=== PATIENT | female | born 1985 | race Caucasian/White ===

== ENCOUNTER → 2017-02-18 | Day surgery (SDC) | payer BC ==
[~2017-02-18] VITALS: Ht 160 cm; Wt 47.3 kg
[~2017-02-18] MED LIST: ACETAMINOPHEN 1000 MG/100 ML VIAL IV ONE; BETH25TA2 PO; DO NOT ADM ANY ANTICOAGULANT DRUGS XX PRN; FAMOTIDINE 20 MG/2 ML VIAL ONE; INSULIN HUMAN REGULAR 1,000 UNITS/10 ML VIAL SQ PRN; LACTATED RINGER'S 1000 ML IV SCH; METOPROLOL TARTRATE 25 MG TAB PO PRN; MIDAZOLAM HCL 2 MG/2 ML VIAL ONE; OB CCAP2 PO; ONDANSETRON HCL 4 MG/2 ML VIAL ONE; OXYTOCIN 10 UNIT/ML AMP ONE; PROPOFOL 200 MG/20 ML AMP IV ONE; PROT40TA PO; SODIUM CHLORID 0.9% 500 ML IV SCH; ceFAZolin 1,000 MG/NS 100 ML IV SCH; fentaNYL CITRATE 250 MCG/5 ML AMP ONE
--- NOTE | 2017-02-18 05:13 | MH ---
cc: BRADEN LO DATE OF ADMISSION: 02/18/2017 DATE OF 1985. ADMISSION DIAGNOSIS Spontaneous at approximately 8-10 weeks gestation. HISTORY OF PRESENT ILLNESS A 31-year-old white female, para 2-0-0-2, with LMP of 12/18/2016. Ultrasound on 01/31/2017 which showed a viable at 6 weeks and 1 day. A follow-up scan on 02/14/2017 showed a nonviable measuring approximately 7 weeks and 1 day. She is now admitted for D&C. PAST MEDICAL HISTORY PREVIOUS SURGERY Breast augmentation in 2002. MEDICATIONS Vitamins. ALLERGIES None. TRANSFUSIONS None. OBSTETRICAL HISTORY Term delivery in 2012 delivered , term delivery in 2014 . 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 Alcohol, tobacco and drugs none. PHYSICAL EXAMINATION GENERAL: A well-nourished, well-developed white female. VITAL SIGNS: Stable. HEENT: Exam is normal. CHEST: Clear. HEART: Regular rate. BREASTS: Symmetrical. ABDOMEN: Benign. PELVIC EXAM: Normal external genitalia and BUS. Vagina is normal. Cervix is normal. The uterus is about 8 weeks' size. Adnexa nonpalpable. ASSESSMENT As above. PLAN She is now admitted for outpatient D&C. While in the office, I explained the diagnosis, the procedure, the risks, benefits and complications. The patient would like to proceed. MD ROBERT Pierce/SSB /10:24 PM /5:04 AM
[2017-02-18 06:34] VITALS: BP 120/74; PULSE 91; RESP 16; TEMP 97.9; O2SAT 100
[2017-02-18 09:54] VITALS: BP 102/69; PULSE 68; RESP 16; TEMP 97.8; O2SAT 98
--- NOTE | 2017-02-20 07:16 | MP ---
cc: BRADEN LO DATE OF SURGERY 02/18/2017 PREOPERATIVE DIAGNOSIS Spontaneous at 8-10 weeks gestation. POSTOPERATIVE DIAGNOSIS Spontaneous at 8-10 weeks gestation. PROCEDURE Suctioned and sharp D&C. ANESTHESIA General ET SURGEON Braden Lo MD ESTIMATED BLOOD LOSS Less than 100 cc FLUIDS 1/2 liter crystalloid OBJECTIVE FINDINGS Following induction of adequate general endotracheal anesthesia, the patient was prepped and draped supine on the operating table in the dorsolithotomy position in the usual sterile fashion with the bladder being drained via in-and-out catheterization. The exam under anesthesia revealed an eight weeks size anterior uterus with no adnexal masses. A heavy-weighted speculum was placed in the posterior fornix of the vagina. The anterior lip of the cervix grasped with a single toothed tenaculum. Cervix and uterus sounded to 9 cm. The patient dilated to a #18 Hanks dilator, a #8 suction curette was passed to remove POC-like material followed by a small sharp curette to dislodge adherent tissue. The suction curette passed again to tack picker loose tissue and debris. All instruments removed. All counts correct. The patient was taken out of the [facility]. She was awakened and taken to the recovery room in good condition. MD ROBERT Pierce/GEOFFREY /9:12 PM /7:08 AM
== END | disposition home or self-care (01) ==
LOC: HSDC 05:43
PROVIDERS: ATTEND Obstetrics & Gynecology
DX: O03.4 Incomplete spontaneous abortion without complication (principal)
CPT/HCPCS: 01965; 59812; 88237; 88264; 88305; J0131; J0690; J2250; J2405; J2590; J3010; J7120